=== PATIENT | male | born 1945 | race Caucasian/White ===

== ENCOUNTER 2019-05-02 05:27 | Inpatient (IN) | payer OTHER ==
[2019-04-27 15:43] LABS: BASOPHILS # (AUTO) 0.1 X10'3 (0-0.2); BASOPHILS % (AUTO) 0.7 % (0-1); EOSINOPHILS # (AUTO) 0.3 X10'3 (0-0.9); EOSINOPHILS % (AUTO) 3.1 % (0-6); LYMPHOCYTES # (AUTO) 1.6 X10'3 (1.1-4.8); LYMPHOCYTES % (AUTO) 18.4 % (21-51); MEAN CORPUSCULAR HEMOGLOBIN 29.8 PG (27.0-31.0); MEAN CORPUSCULAR HGB CONC 34.3 g/dL (33.0-36.5); MEAN PLATELET VOLUME 7.9 FL (7.4-10.4); MONOCYTES # (AUTO) 0.8 X10'3 (0-0.9); MONOCYTES % (AUTO) 9.1 % (2-12); NEUTROPHILS # (AUTO) 5.9 X10'3 (1.8-7.7); NEUTROPHILS % (AUTO) 68.7 % (42-75); PRE OP HEMOGLOBIN 15.1 g/dL (14.0-17.9); PRE OP PLATELET COUNT 193 X10'3 (140-440); RED BLOOD COUNT 5.05 X10'6 (4.70-6.10); RED CELL DISTRIBUTION WIDTH 15.1 % (11.5-14.5)
[2019-04-27 15:52] LABS: CLARITY,URINE CLEAR (Clear); COLOR,URINE YELLOW (Yellow); GLUCOSE, URINE NEGATIVE (Neg); KETONES,URINE NEGATIVE (Neg); LEUKOCYTE ESTERASE ,URINE NEGATIVE (Neg); NITRITES, URINE NEGATIVE (Neg); OCCULT BLOOD,URINE NEGATIVE (Neg); PROTEIN,URINE NEGATIVE (Neg); UA COLLECTION TYPE VOIDED; UROBILINOGEN,URINE 0.2 E.U/dL (0.2-1.0)
[2019-04-27 15:53] LABS: PRE OP PROTIME 9.9 SECONDS (9.0-12.0)
[2019-04-27 16:00] LABS: ALBUMIN 3.7 G/DL (3.4-5.0); ALBUMIN/GLOBULIN RATIO 1.1 (1.1-1.5); ALKALINE PHOSPHATASE 56 IU/L (46-116); BLOOD UREA NITROGEN 24 MG/DL (7-18); BUN/CREATININE RATIO 16.2 (5.4-32.0); CALCIUM 9.3 MG/DL (8.5-10.1); CHLORIDE 103 MMOL/L (99-107); CREATININE 1.48 MG/DL (0.60-1.10); PRE OP ALT 24 U/L (30-65); PRE OP ANION GAP 6 (8-16); PRE OP AST 21 U/L (10-37); PRE OP BILIRUB, TOTAL 0.4 MG/DL (0.0-1.0); PRE OP GLUCOSE 89 MG/DL (70-104); PRE OP POTASSIUM 4.5 MMOL/L (3.4-5.1); PRE OP SODIUM 138 MMOL/L (135-145); TOTAL CARBON DIOXIDE 28.9 MMOL/L (24-32); TOTAL PROTEIN 7.1 G/DL (6.4-8.2); eGFR 47 ML/MIN
[~2019-05-02] VITALS: Ht 172.7 cm; Wt 59.0 kg
[2019-05-02] VITALS (19 sets, daily range): BP systolic 107–146; BP diastolic 53–91
[~2019-05-02 05:27] MED LIST: BUPR150T8 PO; CILO100T PO; ROSU40TA PO; TERA5CAP4 PO
[2019-05-02] MEDS ORDERED: albuterol 2.5 MG/3 ML nebule NEB ONE (05:30)
[2019-05-02] MEDS ORDERED: famotidine 20mg tablet PO ONE (05:30)
[2019-05-02] MEDS ORDERED: cefazolin/dext.iso 2gm/100ml 100 ML IV ONE (05:30)
[2019-05-02] MEDS ORDERED: LIDOcaine 1% (10mg/ml) 2ml vial ONE (06:06)
[2019-05-02] MEDS: ringers solution, lacted 1,000 ML IV SCH ×2 (06:08→17:28)
[2019-05-02] MEDS ORDERED: heparin 10,000 units/1 ML INJ ONE (06:56)
[2019-05-02] MEDS ORDERED: ceFAZolin 1000mg inj ONE ×2 (06:56→10:41)
[2019-05-02] MEDS ORDERED: morphine /PF 1mg/ml 10ml inj. ONE (07:24)
[2019-05-02] MEDS ORDERED: fentaNYL/PF 50MCG/1 ML 2ML syringe ONE (07:24)
[2019-05-02] MEDS ORDERED: MIDAZolam 1mg/ml 10ml vial ONE (07:24)
[2019-05-02] MEDS ORDERED: ringers solution, lacted 1,000 ML IV SCH (07:27)
[2019-05-02] MEDS ORDERED: morphine 4 MG/ML inj SYRINge IV PRN ×2 (07:30)
[2019-05-02] MEDS ORDERED: meperidine/PF 25mg/ml syringe IV PRN ×3 (07:30)
[2019-05-02] MEDS ORDERED: proCHLORperazine 10 MG/2 ml inj IV PRN (07:30)
[2019-05-02] MEDS ORDERED: ondansetron/PF 4mg/2ml inj IV PRN ×3 (07:30→19:30)
[2019-05-02] MEDS ORDERED: phenylephrine 10mg/ml inj. ONE (07:59)
[2019-05-02] MEDS ORDERED: naloxone 2mg/2ml inj 1.2 MG in normal saline 500ml IV soln 500 ML IV PRN (09:40)
[2019-05-02] MEDS ORDERED: diphenhydrAMINE 50 mg/ml inj IV PRN (09:40)
[2019-05-02] MEDS ORDERED: diphenhydrAMINE 50 mg/ml inj ONE (10:04)
--- NOTE | 2019-05-02 11:03 | NUR ---
Received from OR via SURGICAL BED , accompanied by Anesthesiologist YASSINE and report given by Anesthesiolgist. PATIENT WITH ART LINE TO RIGHT UE. 18G PIV IN LEFT UE RUNNING LR AT 100. DENIES PAIN. SENSATION LEVEL CURRENTLY AT L1. LEFT INNER THIGH AND CALF AREA HAVE TWO CLEAN ISLAND DRESSINGS WITH + DP. HUDSON CATHETER IN PLACE. VSGabe. KATY MCKEON UPON ARRIVAL. PROVENA TO LEFT INGUINAL AREA. Addendum: 05/02/19 at 1115 by Mike Dasilva RN, RN Amended: Links added.
[2019-05-02] MEDS ORDERED: Potassium Cl inj 20 MEQ in ringers solution, lacted 1,000 ML IV SCH (11:43)
[2019-05-02] MEDS ORDERED: CADD PCA waste documentation MC PRN ×2 (11:45→12:10)
[2019-05-02] MEDS ORDERED: naloxone 0.4 mg/ml inj IV PRN ×2 (11:45→12:10)
[2019-05-02] MEDS: HYDROmorphone/NS 1 mg/ml CADD 50 ML IV SCH ×7 (12:19→23:00)
--- NOTE | 2019-05-02 12:33 | NUR ---
ALL CRITERIA FOR TRANSFER TO THE FLOOR HAS BEEN ACHIEVED. VSS. BED LOW, CALL LIGHT AND VS. SET IN PLACE. RN PRESENT TO ACCEPT CARE. PATIENT RESTING COMFORTABLY IN BED. BELONGINGS SENT WITH PATIENT. DRESSINGS CDI. ALL QUESTIONS ANSWERED AND WILLIAMS TO ACCEPT PATIENT. ORDERLIES TRANSPORTED PATIENT TO THE FLOOR. Addendum: 05/02/19 at 1239 by Mike Dasilva RN, RN Amended: Links added.
--- NOTE | 2019-05-02 12:45 | NUR ---
Patient in room BOYD 355. I have received report from Mike BANDA and had the opportunity to ask questions and assume patient care.
--- NOTE | 2019-05-02 14:00 | NUR ---
Spoke with Dr. German, and obtained verbal order to change dressing, upon dressing change patient had a large fountain of blood from the surgical site and pressure was held for 10 minutes. Patient bleeding stopped at this time. Surgeon was notified of bleeding and blood thinners were ordered to be held at this time.
[2019-05-02] MEDS: albuterol 2.5 MG/3 ML nebule NEB SCH ×2 (15:00→19:44)
--- NOTE | 2019-05-02 18:09 | NUR ---
Problems reprioritized. Patient report given, questions answered & plan of care reviewed with Mariluz Otto RN.
--- NOTE | 2019-05-02 19:01 | NUR ---
Patient in room BOYD 355. I have received report from SOLO Franks and had the opportunity to ask questions and assume patient care. Addendum: 05/02/19 at 1901 by Bertha Smith RN Amended: Links added.
[2019-05-02] MEDS ORDERED: ringers solution, lactated 500ml IV solution IV SCH (19:45)
[2019-05-03] VITALS: BP 136/63
[2019-05-03] MEDS: HYDROmorphone/NS 1 mg/ml CADD 50 ML IV SCH ×10 (01:00→19:00)
[2019-05-03] MEDS: ringers solution, lacted 1,000 ML IV SCH ×3 (01:16→17:05)
[2019-05-03 05:11] VITALS: BP 148/66
--- NOTE | 2019-05-03 05:40 | NUR ---
patient had n/v at the beginning of the shift, called Dr. German and ordered zofran, also patient had low bp and he ordered LR @125, noted and carried out. in no acute distress, dressing was changed tolerated well.
--- NOTE | 2019-05-03 06:39 | NUR ---
Problems reprioritized. Patient report given, questions answered & plan of care reviewed with SOLO Cobos.
[2019-05-03] MEDS: albuterol 2.5 MG/3 ML nebule NEB SCH ×4 (06:52→19:19)
[2019-05-03] MEDS ORDERED: enoxaparin 40mg/0.4ml syringe SQ SCH (08:00)
[2019-05-03] MEDS ORDERED: cilostazol 50mg tablet PO SCH (09:00)
[2019-05-03] MEDS: buPROPion SR 150mg tablet PO SCH ×2 (09:45→21:26)
[2019-05-03] MEDS: atorvastatin 20mg tablet PO SCH (09:45)
--- NOTE | 2019-05-03 11:25 | NUR ---
Pt bladder scanned 713 ml in bladder, straight cathed pt-- got 680ml urine out.
--- NOTE | 2019-05-03 14:25 | NUR ---
Pt still retaining urine, straight cath - got 900 ml of urine.
[2019-05-03 18:00] VITALS: BP 117/54
--- NOTE | 2019-05-03 18:52 | NUR ---
Problems reprioritized. Patient report given, questions answered & plan of care reviewed with Mariluz BANDA.
--- NOTE | 2019-05-03 18:53 | NUR ---
Patient in room BOYD 355. I have received report from SOLO Cobos and had the opportunity to ask questions and assume patient care. Addendum: 05/03/19 at 1853 by Bertha Smith RN Amended: Links added.
[2019-05-03] MEDS ORDERED: ringers solution, lacted 1,000 ML IV SCH (19:05)
[2019-05-03] MEDS: terazosin 5mg capsule PO SCH (21:26)
[2019-05-03] MEDS: HYDROcodone/acetaminophen 5mg/325mg tablet PO PRN (23:05)
[2019-05-04] VITALS: BP 84/54
[2019-05-04 02:44] VITALS: BP_SYST 100; BP_SYST 144; BP_DIAS 56; BP_DIAS 58
--- NOTE | 2019-05-04 06:44 | NUR ---
Problems reprioritized. Patient report given, questions answered & plan of care reviewed with SOLO Trotter.
--- NOTE | 2019-05-04 06:48 | NUR ---
Patient in room BOYD 355. I have received report from Mariluz Otto RN and had the opportunity to ask questions and assume patient care.
[2019-05-04] MEDS: albuterol 2.5 MG/3 ML nebule NEB SCH ×4 (06:52→19:00)
[2019-05-04] MEDS: clopidogrel 75mg tablet PO SCH (07:58)
[2019-05-04] MEDS: buPROPion SR 150mg tablet PO SCH ×2 (07:58→21:15)
[2019-05-04] MEDS: atorvastatin 20mg tablet PO SCH (07:58)
[2019-05-04] MEDS: HYDROcodone/acetaminophen 5mg/325mg tablet PO PRN ×3 (07:59→17:10)
[2019-05-04 08:07] VITALS: BP 145/71
[2019-05-04 11:07] VITALS: BP 113/64
--- NOTE | 2019-05-04 18:19 | NUR ---
Problems reprioritized. Patient report given, questions answered & plan of care reviewed with Mariluz Otto RN.
--- NOTE | 2019-05-04 18:45 | NUR ---
Patient in room BOYD 355. I have received report from SOLO Trotter and had the opportunity to ask questions and assume patient care. Addendum: 05/04/19 at 1845 by Bertha Smith RN Amended: Links added.
[2019-05-04 20:00] VITALS: BP 100/56
[2019-05-04] MEDS: terazosin 5mg capsule PO SCH (21:16)
[2019-05-05] VITALS: BP 97/64
--- NOTE | 2019-05-05 06:26 | NUR ---
Problems reprioritized. Patient report given, questions answered & plan of care reviewed with SOLO Trotter.
[2019-05-05] MEDS: HYDROcodone/acetaminophen 5mg/325mg tablet PO PRN ×2 (07:40→11:47)
[2019-05-05] MEDS: clopidogrel 75mg tablet PO SCH (07:40)
[2019-05-05] MEDS: atorvastatin 20mg tablet PO SCH (07:41)
[2019-05-05] MEDS: buPROPion SR 150mg tablet PO SCH (07:41)
[2019-05-05] MEDS: albuterol 2.5 MG/3 ML nebule NEB SCH ×2 (08:23→11:00)
[2019-05-05] MEDS ORDERED: CLOP75TA35 PO (12:36)
--- NOTE | 2019-05-05 14:26 | NUR ---
Patient discharged at this time. at bedside. all education printed and given in discharge paperwork. Follow up appointment made by patient, to take place with Dr. lancaster. IV removed. Sánchez still in place per MD order and education on sánchez care provided to both patient and . Supplies provided. Education on handwashing and infection prevention given.
== END 2019-05-05 14:20 | disposition home or self-care (01) | DRG 254 ==
LOC: PAS IN 05:27 → EDSTATUS 08:30 → SUR 3N 11:46 → UNDODISIN 05-05 11:53
PROVIDERS: ADMIT Surgery; ATTEND Surgery
PROC: 04CU0ZZ Extirpation of Matter from Left Peroneal Artery, Open Approach (ICD-10-PCS; 2019-05-02)
PROC: 041L0ZN Bypass Left Femoral Artery to Posterior Tibial Artery, Open Approach (ICD-10-PCS; 2019-05-02)
PROC: 04CL0ZZ Extirpation of Matter from Left Femoral Artery, Open Approach (ICD-10-PCS; principal; 2019-05-02 07:32)
DX: I73.9 Peripheral vascular disease, unspecified (principal); F17.210 Nicotine dependence, cigarettes, uncomplicated; I10 Essential (primary) hypertension; Z82.49 Family history of ischemic heart disease and other diseases of the circulatory system
CPT/HCPCS: 36415; 71046; 80053; 81003; 82948; 85025; 85610; 85730; 86885; 86900; 86901; 86920; 87081; 93005; 94640; 94760; 97110; 97116; 97162; 97530; A4618; A7000; C1758; G0378; J0690; J1170; J1200; J1644; J2001; J2250; J2270; J2370; J2405; J3010; J7040; J7120

== ENCOUNTER 2019-05-08 00:39 | Emergency (ER) | payer OTHER ==
[~2019-05-08] VITALS: Ht 172.7 cm; Wt 59.0 kg
[~2019-05-08 00:39] MED LIST changes: +CLOP75TA35 PO
[2019-05-08] MEDS ORDERED: morphine 4 MG/ML inj SYRINge IV ONE (01:15)
[2019-05-08] MEDS ORDERED: ondansetron/PF 4mg/2ml inj IV ONE (01:15)
[2019-05-08] MEDS ORDERED: LORazepam 2 mg/ml vial IV ONE (01:25)
[2019-05-08] MEDS ORDERED: LIDOcaine 2% 10ml TOPICAL JELLY (Urojet) MM ONE ×2 (01:25→05:35)
--- NOTE | 2019-05-08 01:42 | NUR ---
Pt premedicated prior to [facility] performing needle decompression of indwelling FC balloon pt had attempted to remove without balloon deflation resulting in catheter coiling within urethera. New FC was immediately replaced without resistance by this RN. PTW. He is currently resting and output being monitored. Currently output is scant and includes bright red blood. Leg bag will be attached prior to discharge.
[2019-05-08] MEDS ORDERED: normal saline 1000ml 1,000 ML IV ONE (03:05)
[2019-05-08] MEDS ORDERED: haloperidol lactate 5mg/ml inj IM ONE (05:05)
--- NOTE | 2019-05-08 05:26 | NUR ---
Pt was standing at bedside. He is very confused. Changed his bed, put pt back in bed and soft wrist restraints to wrists applied for safety as pt pulling at sánchez catheter. Sánchez catheter irrigated with 100 mls of sterile water for zero return. bladder scanned. The catheter is not draining. MD made aware, he has a call into urologist. MD aware of patient confusion, he is aware of the restraints.
--- NOTE | 2019-05-08 07:17 | NUR ---
at about 0640 dr syed arrived and found pt on his knees at the foot of the bed we assisted pt back in to bed and dr syed proceded with attimpting to place a f/c and was not able to. so he used the scope and placed a f/c with assistace of the scope. once completed he asked for a leg bag to be placed so there is less of a chance of it being pulled again. a leg bag was placed. pt keeps tring to climb out of bed and keeps needing reminded to say in bed. he is easy to redirect and follows comands
[2019-05-08 07:23] VITALS: BP 125/69
--- NOTE | 2019-05-08 07:24 | NUR ---
22 fr f/c was placed by dr syed
--- NOTE | 2019-05-08 07:48 | NUR ---
pt keeps tying to climb out of bed and is weak and shaky when he gets up to his feet. and he is starting to become harder to redirect and starting to become more agressive
== END 2019-05-08 08:52 | disposition home or self-care (01) ==
LOC: ER 00:41
DX: T83.098A Other mechanical complication of other urinary catheter, initial encounter (principal); Z98.890 Other specified postprocedural states; Z79.899 Other long term (current) drug therapy; W18.39XA Other fall on same level, initial encounter; Y93.89 Activity, other specified; Y92.89 Other specified places as the place of occurrence of the external cause; Y99.8 Other external cause status; Y84.6 Urinary catheterization as the cause of abnormal reaction of the patient, or of later complication, without mention of misadventure at the time of the procedure
CPT/HCPCS: 51702; 70450; 96372; 96374; 96375; 99285; J1630; J2060; J2270; J2405; J7030; 99284

== ENCOUNTER 2019-05-19 01:46 | Inpatient (IN) | payer MEDICARE ==
[~2019-05-19] VITALS: Ht 172.7 cm; Wt 53.6 kg
[2019-05-19] VITALS (26 sets, daily range): BP systolic 93–194; BP diastolic 45–101
[2019-05-19] MEDS ORDERED: normal saline 1000ML IV soln IV ONE (02:40)
[2019-05-19] MEDS ORDERED: CefTRIAXone 2gm/D5W 50ml 50 ML IV ONE (02:40)
[2019-05-19] MEDS ORDERED: ondansetron/PF 4mg/2ml inj IV ONE (02:55)
[2019-05-19] MEDS ORDERED: HYDROcodone/acetaminophen 5mg/325mg tablet PO ONE (02:55)
[2019-05-19 03:09] LABS: BASOPHILS # (AUTO) 0.1 X10'3 (0-0.2); BASOPHILS % (AUTO) 0.4 % (0-1); EOSINOPHILS # (AUTO) 0.1 X10'3 (0-0.9); EOSINOPHILS % (AUTO) 0.5 % (0-6); LYMPHOCYTES # (AUTO) 2.7 X10'3 (1.1-4.8); MEAN CORPUSCULAR HEMOGLOBIN 28.9 PG (27.0-31.0); MEAN CORPUSCULAR HGB CONC 32.1 g/dL (33.0-36.5); MEAN PLATELET VOLUME 8.1 FL (7.4-10.4); MONOCYTES # (AUTO) 0.9 X10'3 (0-0.9); MONOCYTES % (AUTO) 4.3 % (2-12); NEUTROPHILS # (AUTO) 18.2 X10'3 (1.8-7.7); NEUTROPHILS % (AUTO) 82.8 % (42-75); PLATELET COUNT 597 X10'3 (140-440); RED BLOOD COUNT 2.17 X10'6 (4.70-6.10); RED CELL DISTRIBUTION WIDTH 14.3 % (11.5-14.5)
[2019-05-19 03:17] LABS: PARTIAL THROMBOPLASTIN TIME 23 SECONDS (22-32)
[2019-05-19 03:23] LABS: CLARITY,URINE CLOUDY (Clear); COLOR,URINE YELLOW (Yellow); GLUCOSE, URINE 100 mg/dl (Neg); KETONES,URINE NEGATIVE (Neg); LEUKOCYTE ESTERASE ,URINE SMALL (Neg); NITRITES, URINE NEGATIVE (Neg); OCCULT BLOOD,URINE LARGE (Neg); PH,URINE 5.5 (4.8-8.0); PROTEIN,URINE 100 mg/dl (Neg); UROBILINOGEN,URINE 0.2 E.U/dL (0.2-1.0)
[2019-05-19 03:26] LABS: HEMATOCRIT 19.5 % (42.0-52.0); HEMOGLOBIN 6.3 g/dl (14.0-17.9)
[2019-05-19 03:30] LABS: UA COLLECTION TYPE FOLEY CATH
[2019-05-19 03:31] LABS: BACTERIA,URINE FEW /HPF (Neg); SQUAMOUS EPITHELIAL CELL,UR FEW /LPF (FEW); WBC CLUMPS,URINE FEW /HPF (NEGATIVE); WBC,URINE 50-100 /HPF (0-4)
[2019-05-19] MEDS ORDERED: pantoprazole 40 MG vial IV ONE (03:35)
[2019-05-19] MEDS ORDERED: famotidine/PF 10 mg/ml inj IV ONE (03:35)
[2019-05-19 03:55] LABS: ANISOCYTOSIS 1+; PLATELET ESTIMATE INCREASED; TOTAL CELLS COUNTED 100
[2019-05-19 03:56] LABS: OCCULT BLOOD STOOL POSITIVE (Neg)
[2019-05-19] MEDS: pantoprazole 40MG/NS 100ML BAG 100 ML IV SCH ×5 (04:00→20:55)
[2019-05-19] MEDS ORDERED: magnesium 4gm in 100ml NS 100 ML IV PRN (04:10)
[2019-05-19] MEDS ORDERED: magnesium 2GM in 50ml NS 50 ML IV PRN (04:10)
[2019-05-19] MEDS ORDERED: ondansetron/PF 4mg/2ml inj IV PRN (04:10)
[2019-05-19] MEDS ORDERED: magnesium hydroxide 30ml (MOM) UD suspension PO PRN (04:10)
[2019-05-19] MEDS ORDERED: acetaminophen 325mg tablet PO PRN ×2 (04:10)
[2019-05-19] MEDS ORDERED: potassium Cl 20 mEq SR tablet PO PRN ×2 (04:10)
[2019-05-19] MEDS ORDERED: mag hydrox/Alum hydrox/simeth 30ml oral suspension PO PRN (04:10)
[2019-05-19] MEDS ORDERED: magnesium Cl slow-release 64mg tablet PO PRN (04:10)
[2019-05-19] MEDS ORDERED: potassium CL 10mEq/100ml bag 100 ML IV PRN ×2 (04:10)
[2019-05-19 04:14] LABS: ALANINE AMINOTRANSFERASE 29 U/L (12-78); ALBUMIN 2.1 G/DL (3.4-5.0); ALBUMIN/GLOBULIN RATIO 0.6 (1.1-1.5); ALKALINE PHOSPHATASE 60 IU/L (46-116); ANION GAP 18 (8-16); ASPARTATE AMINO TRANSFERASE 22 U/L (10-37); BILIRUBIN,TOTAL 0.3 MG/DL (0.1-1.0); BLOOD UREA NITROGEN 33 MG/DL (7-18); BUN/CREATININE RATIO 16.7 (5.4-32.0); CALCIUM 8.9 MG/DL (8.5-10.1); CHLORIDE 106 MMOL/L (99-107); CREATININE 1.98 MG/DL (0.60-1.10); GLUCOSE 325 MG/DL (70-104); POTASSIUM 4.8 MMOL/L (3.5-5.1); SODIUM 141 MMOL/L (135-145); TOTAL CARBON DIOXIDE 17.5 MMOL/L (24-32); TOTAL PROTEIN 5.4 G/DL (6.4-8.2); eGFR 33 ML/MIN
[2019-05-19] MEDS ORDERED: CLOP75TA80 PO (04:15)
--- NOTE | 2019-05-19 05:05 | NUR ---
received report from Tavo BANDA ER, had opportunity to ask questions, per hand off report: pt on Protonix drip running at 20ml/hr, suspected upper GI bleed, sepsis, UTI, anemia, pt H/H 6.3/19.5, unit of blood needed, pt has large incision on left leg from hip to ankle with open area on upper thigh not bleeding but small amount of drainage. awaiting pt arrival to unit.
--- NOTE | 2019-05-19 06:21 | NUR ---
Patient in room PCU 3017. I have received report from SOLO Metzger and had the opportunity to ask questions and assume patient care.
--- NOTE | 2019-05-19 06:30 | NUR ---
Problems reprioritized. Patient report given, questions answered & plan of care reviewed with Kwaku BANDA.
--- NOTE | 2019-05-19 06:58 | NUR ---
PAGER ID: [phone] MESSAGE: [phone] Javid Arora: Patient does not want morphione (he says he hallucinates on it), he is hoping he can get a different pain med. SOLO Ames Ext [id number]
[2019-05-19] MEDS ORDERED: HYDROcodone/acetaminophen 5mg/325mg tablet PO PRN (07:05)
[2019-05-19 07:35] LABS: ALBUMIN 2.3 G/DL (3.4-5.0); ANION GAP 11 (8-16); BLOOD UREA NITROGEN 32 MG/DL (7-18); BUN/CREATININE RATIO 20.8 (5.4-32.0); CALCIUM 8.7 MG/DL (8.5-10.1); CHLORIDE 109 MMOL/L (99-107); CREATININE 1.54 MG/DL (0.60-1.10); GLUCOSE 221 MG/DL (70-104); SODIUM 141 MMOL/L (135-145); TOTAL CARBON DIOXIDE 20.6 MMOL/L (24-32); eGFR 45 ML/MIN
[2019-05-19 07:47] LABS: BASOPHILS # (AUTO) 0.1 X10'3 (0-0.2); BASOPHILS % (AUTO) 0.3 % (0-1); EOSINOPHILS % (AUTO) 0 % (0-6); HEMATOCRIT 22.6 % (42.0-52.0); HEMOGLOBIN 7.5 g/dl (14.0-17.9); LYMPHOCYTES # (AUTO) 0.8 X10'3 (1.1-4.8); LYMPHOCYTES % (AUTO) 2.5 % (21-51); MEAN CORPUSCULAR HEMOGLOBIN 28.8 PG (27.0-31.0); MEAN CORPUSCULAR VOLUME 87.3 FL (78-98); MEAN PLATELET VOLUME 7.7 FL (7.4-10.4); MONOCYTES # (AUTO) 1.2 X10'3 (0-0.9); MONOCYTES % (AUTO) 3.9 % (2-12); NEUTROPHILS # (AUTO) 28.5 X10'3 (1.8-7.7); NEUTROPHILS % (AUTO) 93.3 % (42-75); PLATELET COUNT 525 X10'3 (140-440); RED BLOOD COUNT 2.59 X10'6 (4.70-6.10); RED CELL DISTRIBUTION WIDTH 14.1 % (11.5-14.5)
[2019-05-19 07:49] LABS: WHITE BLOOD COUNT 30.5 X10'3 (4.5-11.0)
--- NOTE | 2019-05-19 07:50 | NUR ---
PAGER ID: [phone] MESSAGE: [phone] Javid Arora: WBC 30.5 SOLO Ames Ext [id number]
[2019-05-19 07:51] LABS: TROPONIN I 0.88 NG/ML (0.0-0.05)
[2019-05-19] MEDS: K and/or MAG REPLACEMENT MC SCH ×2 (08:00→20:00)
--- NOTE | 2019-05-19 08:04 | NUR ---
PAGER ID: [phone] MESSAGE: [id number] Javid Arora: Trop 0.88. Also can he get something for BP 194/76 SOLO Ames Ext [id number]
--- NOTE | 2019-05-19 08:05 | NUR ---
PAGER ID: [phone] MESSAGE: [id number] Javid Arora: Trop 0.88. Also can he get something for BP 194/76 SOLO Ames Ext [id number]
[2019-05-19] MEDS: atorvastatin 10mg tablet PO SCH (08:07)
[2019-05-19 08:08] LABS: PLATELET ESTIMATE INCREASED; POLYCHROMASIA 1+; TOTAL CELLS COUNTED 100; TOXIC GRANULATION 3+
--- NOTE | 2019-05-19 08:11 | NUR ---
PAGER ID: [phone] MESSAGE: [id number] Javid Arora: Trop 1.47 (per Lab timing of draws got messed up). SOLO Ames Ext [id number]
[2019-05-19] MEDS ORDERED: hydrALAZINE 20mg/ml inj. IV PRN (08:20)
[2019-05-19] MEDS ORDERED: atorvastatin 20mg tablet PO SCH (08:20)
[2019-05-19] MEDS: metoprolol succinate 25mg (24-HOUR) SR. Tablet PO SCH (08:38)
[2019-05-19] MEDS ORDERED: LIDOcaine Viscous 15ml cup ONE (08:51)
[2019-05-19] MEDS ORDERED: MIDAZolam 5mg/5ml vial ONE (08:51)
[2019-05-19] MEDS ORDERED: fentaNYL/PF 50MCG/1 ML 2ML syringe ONE (08:51)
[2019-05-19] MEDS: normal saline 1000ml 1,000 ML IV SCH ×2 (11:30→14:39)
[2019-05-19] MEDS: vancomycin/NS 1 GM ADD-VANTAGE 250 ML IV SCH (11:30)
[2019-05-19] MEDS ORDERED: isosorbide mononitrate 30mg tab.SR.24H PO ONE (11:55)
--- NOTE | 2019-05-19 12:00 | NUR ---
Initial: Pt admit with ALOC and sepsis secondary to UTI. Pt just admit this morning, pending diet order. Pt with low BMI of 18 however current documented wt is unreliable as it is pt stated. Pt recently admitted and documented at 59 kg 05/01 taken with standing scale resulting in an appropriate BMI of 19.8. No documented LBM. Will continue to follow closely and make recommendations as appropriate. Recommendations: 1) Advance diet to regular as medically indicated 2) Monitor need for ONS with diet advancement 3) Routine bowel care 4) Wt per rx Addendum: 05/19/19 at [address] Amended: Links added.
[2019-05-19 12:54] LABS: HEMATOCRIT 29.4 % (42.0-52.0); HEMOGLOBIN 9.8 g/dl (14.0-17.9); MEAN CORPUSCULAR HEMOGLOBIN 29.3 PG (27.0-31.0); MEAN CORPUSCULAR HGB CONC 33.2 g/dL (33.0-36.5); MEAN CORPUSCULAR VOLUME 88.4 FL (78-98); MEAN PLATELET VOLUME 7.8 FL (7.4-10.4); PLATELET COUNT 444 X10'3 (140-440); RED BLOOD COUNT 3.33 X10'6 (4.70-6.10); RED CELL DISTRIBUTION WIDTH 14.6 % (11.5-14.5)
[2019-05-19 12:58] LABS: WHITE BLOOD COUNT 40.2 X10'3 (4.5-11.0)
--- NOTE | 2019-05-19 13:04 | NUR ---
PAGER ID: [phone] MESSAGE: [phone] DAYDAY WBC WENT FROM 30.5 TO 40.2 IN 5 HOURS. KRISTIN BANDA Addendum: 05/19/19 at 1347 by Leandra Eason RN Amended: Links added.
--- NOTE | 2019-05-19 13:13 | NUR ---
PAGER ID: [phone] MESSAGE: [id number] Javid Maite: Trop now at 6.44 SOLO Ames Ext [id number]
--- NOTE | 2019-05-19 13:17 | NUR ---
Left message for Shay QUINTANILLA answering service regarding climb in trop lvl per Dr Newberry.
--- NOTE | 2019-05-19 13:20 | NUR ---
Per answer from Dr QUINTANILLA repeat trops in the morning.
[2019-05-19] MEDS: piperacillin/tazo 3.375gm/50ml 50 ML IV SCH ×2 (14:01→23:44)
[2019-05-19 17:28] LABS: HEMATOCRIT 31.1 % (42.0-52.0); HEMOGLOBIN 10.4 g/dl (14.0-17.9); MEAN CORPUSCULAR HEMOGLOBIN 29.5 PG (27.0-31.0); MEAN CORPUSCULAR HGB CONC 33.4 g/dL (33.0-36.5); MEAN CORPUSCULAR VOLUME 88.4 FL (78-98); PLATELET COUNT 429 X10'3 (140-440); RED BLOOD COUNT 3.51 X10'6 (4.70-6.10); RED CELL DISTRIBUTION WIDTH 14.5 % (11.5-14.5)
--- NOTE | 2019-05-19 17:45 | NUR ---
PAGER ID: [phone] MESSAGE: [id number] Javid Arora: Trop 10.63 (Per Dr QUINTANILLA earlier he said to repeat trop series again tomorrow). SOLO Ames Ext [id number]
[2019-05-19] MEDS ORDERED: nitroGLYCERIN-Tridil 50MG/D5W 250 ML IV SCH (17:55)
--- NOTE | 2019-05-19 18:00 | NUR ---
Patient in room PCU 3017. I have received report from Kwaku BANDA and had the opportunity to ask questions and assume patient care.
--- NOTE | 2019-05-19 18:44 | NUR ---
Problems reprioritized. Patient report given, questions answered & plan of care reviewed with SOLO Montejo.
--- NOTE | 2019-05-19 18:58 | NUR ---
Confused and agitated PAGER ID: [phone] MESSAGE: [phone] Javid Arora: Patient is becoming increasingly confused, agitated, and wanting to leave. Would you like to order anything? Nikia BANDA [phone]
[2019-05-19] MEDS ORDERED: OLANZapine 2.5MG tablet PO PRN (19:05)
[2019-05-19] MEDS: terazosin 5mg capsule PO SCH (21:00)
--- NOTE | 2019-05-19 21:41 | NUR ---
Nitro drip not started MD Chance called about low blood pressure and order for Nitro drip. Okayed to not start Nitro drip. Will continue to monitor. PAGER ID: [phone] MESSAGE: Javid Arora: SBP 97/45, Nitro drip not given at this time. Would you like to order an additional troponin? Nikia BANDA [phone]
--- NOTE | 2019-05-19 22:22 | NUR ---
Nitro drip MD Bob called back, no extra trops to be ordered. Nitro drip to be started when SBP is stable over 110s.
[2019-05-20] VITALS (17 sets, daily range): BP systolic 97–132; BP diastolic 23–66
[2019-05-20] MEDS: normal saline 1000ml 1,000 ML IV SCH ×3 (00:10→20:10)
[2019-05-20] MEDS: pantoprazole 40MG/NS 100ML BAG 100 ML IV SCH ×5 (01:54→21:00)
--- NOTE | 2019-05-20 02:40 | NUR ---
CONFUSION PAGER ID: [phone] MESSAGE: [id number] Cruz Arora: Patient is confused and is getting worse by pulling and getting out of bed. Zyprexa was able to keep him manageable for some time. Would you like to order something? Nikia BANDA [phone]
--- NOTE | 2019-05-20 04:15 | NUR ---
END NOC NOTE Patient has been continually been pleasantly confused, bed alarm used all night; Zyprexa was given once at the beginning of shift and was able to become more compliant. MD Bob suggested a sitter before any more mediations. Patient stated no pain all night. Wound care was done on left thigh surgical wound. Diarrhea is now clear with a few clots. Nitro drip was not started tonight, MD aware, blood pressures have been low. Will continue to monitor.
--- NOTE | 2019-05-20 06:29 | NUR ---
Problems reprioritized. Patient report given, questions answered & plan of care reviewed with Tori BANDA.
--- NOTE | 2019-05-20 06:43 | NUR ---
Patient in room PCU 3017. I have received report from Lisa BANDA and had the opportunity to ask questions and assume patient care. All patients' needs met at this time.
[2019-05-20 07:51] LABS: BASOPHILS % (AUTO) 0.1 % (0-1); EOSINOPHILS % (AUTO) 0 % (0-6); HEMATOCRIT 25.4 % (42.0-52.0); HEMOGLOBIN 8.7 g/dl (14.0-17.9); LYMPHOCYTES # (AUTO) 0.9 X10'3 (1.1-4.8); MEAN CORPUSCULAR HEMOGLOBIN 29.7 PG (27.0-31.0); MEAN CORPUSCULAR HGB CONC 34.3 g/dL (33.0-36.5); MEAN CORPUSCULAR VOLUME 86.6 FL (78-98); MEAN PLATELET VOLUME 7.8 FL (7.4-10.4); MONOCYTES # (AUTO) 1.6 X10'3 (0-0.9); MONOCYTES % (AUTO) 5.3 % (2-12); NEUTROPHILS # (AUTO) 27.1 X10'3 (1.8-7.7); NEUTROPHILS % (AUTO) 91.6 % (42-75); PLATELET COUNT 366 X10'3 (140-440); RED BLOOD COUNT 2.94 X10'6 (4.70-6.10); RED CELL DISTRIBUTION WIDTH 14.9 % (11.5-14.5)
[2019-05-20] MEDS: K and/or MAG REPLACEMENT MC SCH ×2 (08:00→20:00)
[2019-05-20] MEDS ORDERED: CefTRIAXone 2gm/D5W 50ml 50 ML IV SCH (08:00)
[2019-05-20 08:02] LABS: WHITE BLOOD COUNT 29.6 X10'3 (4.5-11.0)
--- NOTE | 2019-05-20 08:04 | NUR ---
CRITICAL LAB VALUE TAKEN [facility] LAB, REPORTED TO PRIMARY RN.
--- NOTE | 2019-05-20 08:10 | NUR ---
Paged Dr Newberry about critical WBC PAGER ID: [phone] MESSAGE: Aaliyah Maite Javid Rm [id number] FYI Critical WBC 29.6, trending down from 36.0. Thanks Tori [phone]
[2019-05-20 08:13] LABS: ALBUMIN 2.1 G/DL (3.4-5.0); ANION GAP 8 (8-16); BLOOD UREA NITROGEN 37 MG/DL (7-18); BUN/CREATININE RATIO 24.5 (5.4-32.0); CALCIUM 7.9 MG/DL (8.5-10.1); CHLORIDE 112 MMOL/L (99-107); CREATININE 1.51 MG/DL (0.60-1.10); GLUCOSE 148 MG/DL (70-104); MAGNESIUM 1.9 MG/DL (1.5-2.4); POTASSIUM 4.2 MMOL/L (3.5-5.1); SODIUM 145 MMOL/L (135-145); TOTAL CARBON DIOXIDE 25.5 MMOL/L (24-32); eGFR 46 ML/MIN
[2019-05-20 08:16] LABS: TROPONIN I 7.96 NG/ML (0.0-0.05)
[2019-05-20] MEDS: isosorbide mononitrate 30mg tab.SR.24H PO SCH (08:21)
[2019-05-20] MEDS: atorvastatin 10mg tablet PO SCH (08:21)
[2019-05-20] MEDS: metoprolol succinate 25mg (24-HOUR) SR. Tablet PO SCH (08:21)
[2019-05-20 08:23] LABS: ANISOCYTOSIS FEW; PLATELET ESTIMATE NORMAL; POLYCHROMASIA FEW; TOTAL CELLS COUNTED 100; TOXIC GRANULATION 2+
[2019-05-20] MEDS: piperacillin/tazo 3.375gm/50ml 50 ML IV SCH ×2 (08:25→16:13)
--- NOTE | 2019-05-20 08:56 | NUR ---
Paged dr huitron about critical lab PAGER ID: [phone] MESSAGE: Re: John Arora [phone] FYI Critical am trops 7.96, trending down from 10.63. Thanks Tori [phone]
--- NOTE | 2019-05-20 10:51 | NUR ---
Paged Dr Newberry about critical lab PAGER ID: [phone] MESSAGE: John Antonio [id number]. I Critical Trops 8., previous 7. Thanks Tori [phone]
--- NOTE | 2019-05-20 13:16 | NUR ---
CRITICAL LAB VALUE TAKEN FROM LAB, REPORTED TO PRIMARY RN.
[2019-05-20] MEDS: vancomycin/NS 1 GM ADD-VANTAGE 250 ML IV SCH (13:51)
--- NOTE | 2019-05-20 14:00 | NUR ---
Placed rectal tube per MD orders. Patient tolerated well, draining efficiently. Will continue to monitor regularly.
--- NOTE | 2019-05-20 14:14 | NUR ---
Calorie Count/Malnutrition consults: Pt admit w/ sepsis secondary to UTI currently AOx2 and pleasantly confused per RN note. Pt remains NPO at this time w/ no diet order this admit day 2. PHANI d/w RN who reports likely error and will f/u for MD recs. At this time pt current wt is stated even though ALOC, no edema or weakness noted, and no PO hx. Pt prior admit scaled wt 05/01 59kg standing scale giving pt appropriate BMI 20. Pt does not meet minimum malnutrition criteria at this time. Will continue to monitor. Addendum: 05/20/19 at [address] Amended: Links added.
[2019-05-20 15:48] LABS: C DIFFICILE TOXINS A&B NEGATIVE (Neg)
[2019-05-20 15:49] LABS: C DIFF ANTIGEN NEGATIVE (NEGATIVE); C DIFF SPECIMEN=DIARRHEA? ACCEPTABLE
--- NOTE | 2019-05-20 18:00 | NUR ---
Patient in room PCU 3017. I have received report from Tori BANDA and had the opportunity to ask questions and assume patient care.
--- NOTE | 2019-05-20 18:57 | NUR ---
Problems reprioritized. Patient report given, questions answered & plan of care reviewed with Lisa BANDA. All patient's needs met at this time.
[2019-05-20] MEDS ORDERED: ketamine 50mg/5ml syringe ONE (19:28)
[2019-05-20] MEDS ORDERED: midazolam 2 mg/2 ml injection ONE (19:28)
[2019-05-20] MEDS ORDERED: fentaNYL /PF 50mcg/ml 5ml ampule ONE (19:28)
[2019-05-20] MEDS ORDERED: ceFAZolin 1000mg inj ONE (19:42)
[2019-05-20] MEDS ORDERED: propofol inj 20 ML IV ONE (20:12)
[2019-05-20] MEDS ORDERED: LIDOcaine 1%/PF 5ML 10 MG/ML VIAL ONE (20:12)
[2019-05-20] MEDS ORDERED: meperidine/PF 50mg/ml syringe ONE (20:15)
[2019-05-20] MEDS ORDERED: ringers solution, lacted 1,000 ML IV SCH (20:24)
[2019-05-20] MEDS ORDERED: meperidine/PF 25mg/ml syringe IV PRN ×3 (20:25)
[2019-05-20] MEDS ORDERED: ondansetron/PF 4mg/2ml inj IV PRN (20:25)
[2019-05-20] MEDS ORDERED: proCHLORperazine 10 MG/2 ml inj IV PRN (20:25)
[2019-05-20] MEDS ORDERED: morphine 4 MG/ML inj SYRINge IV PRN ×2 (20:25)
--- NOTE | 2019-05-20 20:25 | NUR ---
Received from OR via BED, accompanied by Anesthesiologist CARMEN and report given by Anesthesiolgist. PT SLEEPY, OXYGENATING WELL ON 10 LPM O2 VIA MASK, NO RESP DISTRESS NOTED. NO C/O NAUSEA OR PAIN AT THIS TIME, PT RESTING QUIETLY. WOUND VAC DSG TO UPPER LEFT THIGH, GOOD SEAL. SX TO 125 CONT. PALPABLE PEDAL PULSES BILAT. VSS.
[2019-05-20] MEDS: terazosin 5mg capsule PO SCH (21:00)
--- NOTE | 2019-05-20 21:25 | NUR ---
Report called to receiving nurse. Transferred via BED Belongings IN PT ROOM. VSS. DENIES PAIN. NO PO FLUIDS GIVEN IN PACU, PT SLEEPY.WAKES UP AND ANSWERS QUESTIONS. TRANSFERRED BACK TO PCU IN STABLE CONDITION. Special Issues communicated to receiving nurse.
[2019-05-21] VITALS (10 sets, daily range): BP systolic 93–140; BP diastolic 49–67
[2019-05-21] MEDS: piperacillin/tazo 3.375gm/50ml 50 ML IV SCH ×2 (00:07→07:57)
[2019-05-21] MEDS: pantoprazole 40MG/NS 100ML BAG 100 ML IV SCH ×5 (00:10→21:51)
[2019-05-21 06:43] LABS: BASOPHILS % (AUTO) 0.2 % (0-1); EOSINOPHILS % (AUTO) 0 % (0-6); HEMOGLOBIN 8.5 g/dl (14.0-17.9); LYMPHOCYTES # (AUTO) 0.9 X10'3 (1.1-4.8); LYMPHOCYTES % (AUTO) 3.6 % (21-51); MEAN CORPUSCULAR HEMOGLOBIN 29.8 PG (27.0-31.0); MEAN CORPUSCULAR HGB CONC 34.1 g/dL (33.0-36.5); MEAN CORPUSCULAR VOLUME 87.3 FL (78-98); MEAN PLATELET VOLUME 8.2 FL (7.4-10.4); MONOCYTES # (AUTO) 1.5 X10'3 (0-0.9); MONOCYTES % (AUTO) 5.9 % (2-12); NEUTROPHILS # (AUTO) 22.5 X10'3 (1.8-7.7); NEUTROPHILS % (AUTO) 90.3 % (42-75); PLATELET COUNT 334 X10'3 (140-440); RED BLOOD COUNT 2.86 X10'6 (4.70-6.10); RED CELL DISTRIBUTION WIDTH 14.9 % (11.5-14.5); WHITE BLOOD COUNT 24.9 X10'3 (4.5-11.0)
[2019-05-21 07:03] LABS: ANION GAP 7 (8-16); BLOOD UREA NITROGEN 33 MG/DL (7-18); BUN/CREATININE RATIO 22.3 (5.4-32.0); CALCIUM 7.6 MG/DL (8.5-10.1); CHLORIDE 114 MMOL/L (99-107); CREATININE 1.48 MG/DL (0.60-1.10); GLUCOSE 110 MG/DL (70-104); MAGNESIUM 2.3 MG/DL (1.5-2.4); POTASSIUM 3.9 MMOL/L (3.5-5.1); SODIUM 148 MMOL/L (135-145); TOTAL CARBON DIOXIDE 26.6 MMOL/L (24-32); eGFR 47 ML/MIN
--- NOTE | 2019-05-21 07:14 | NUR ---
Patient in room PCU 3017. I have received report from Lisa BANDA and had the opportunity to ask questions and assume patient care. All patient's needs met at this time.
--- NOTE | 2019-05-21 07:23 | NUR ---
END NOC NOTE Patient had procedure at start of shift, left leg wound was debrided and wound vac placed. Patient has slept all night, still has diarrhea but with no red clots. Patient's troponin has been trending down, last was 5.16 and MD Bryant was notified with no new orders. Blood pressures have been low all night but stable. Patient has complained of dry mouth and ice was given, will pass on to day shift of potential diet change. Will continue to monitor.
[2019-05-21] MEDS: atorvastatin 10mg tablet PO SCH (07:57)
[2019-05-21] MEDS: isosorbide mononitrate 30mg tab.SR.24H PO SCH (07:57)
[2019-05-21] MEDS: metoprolol succinate 25mg (24-HOUR) SR. Tablet PO SCH (07:57)
[2019-05-21] MEDS: normal saline 1000ml 1,000 ML IV SCH ×2 (07:58→17:04)
[2019-05-21] MEDS: K and/or MAG REPLACEMENT MC SCH ×2 (08:00→20:00)
--- NOTE | 2019-05-21 09:59 | NUR ---
Paged Dr Newberry PAGER ID: [phone] MESSAGE: Aaliyah AroraDesy [id number] FYI Pt is still NPO, can you put a diet order in for him please. Thank you Tori [phone]
--- NOTE | 2019-05-21 18:00 | NUR ---
Patient in room PCU 3017. I have received report from Tori BANDA and had the opportunity to ask questions and assume patient care.
--- NOTE | 2019-05-21 18:55 | NUR ---
Problems reprioritized. Patient report given, questions answered & plan of care reviewed with Lisa BANDA. All patient's needs met at this time.
[2019-05-21] MEDS: amox tr/potassium clavulanate 875/125mg TAB PO SCH (19:17)
[2019-05-21] MEDS: terazosin 5mg capsule PO SCH (20:52)
[2019-05-22] MEDS: pantoprazole 40MG/NS 100ML BAG 100 ML IV SCH ×3 (01:00→09:12)
--- NOTE | 2019-05-22 01:55 | NUR ---
Urine retention PAGER ID: [phone] MESSAGE: Javid Arora: Patient has had difficulty urinating, bladder scanner states 999ml. he has a history of pulling out f/c, requesting straight cath please. nimo BANDA [phone]
[2019-05-22] MEDS: normal saline 1000ml 1,000 ML IV SCH (02:28)
[2019-05-22 03:00] VITALS: BP 143/59
[2019-05-22 05:33] LABS: BASOPHILS % (AUTO) 0 % (0-1); EOSINOPHILS % (AUTO) 0 % (0-6); HEMATOCRIT 25.8 % (42.0-52.0); HEMOGLOBIN 8.7 g/dl (14.0-17.9); LYMPHOCYTES # (AUTO) 0.9 X10'3 (1.1-4.8); LYMPHOCYTES % (AUTO) 4.3 % (21-51); MEAN CORPUSCULAR HEMOGLOBIN 29.7 PG (27.0-31.0); MEAN CORPUSCULAR HGB CONC 33.8 g/dL (33.0-36.5); MEAN CORPUSCULAR VOLUME 87.8 FL (78-98); MEAN PLATELET VOLUME 8.5 FL (7.4-10.4); MONOCYTES # (AUTO) 1.6 X10'3 (0-0.9); MONOCYTES % (AUTO) 7.7 % (2-12); NEUTROPHILS # (AUTO) 18.4 X10'3 (1.8-7.7); PLATELET COUNT 358 X10'3 (140-440); RED BLOOD COUNT 2.94 X10'6 (4.70-6.10); WHITE BLOOD COUNT 20.9 X10'3 (4.5-11.0)
[2019-05-22 05:40] LABS: ANION GAP 10 (8-16); BLOOD UREA NITROGEN 26 MG/DL (7-18); CALCIUM 7.5 MG/DL (8.5-10.1); CHLORIDE 107 MMOL/L (99-107); CREATININE 1.37 MG/DL (0.60-1.10); GLUCOSE 111 MG/DL (70-104); MAGNESIUM 2.3 MG/DL (1.5-2.4); POTASSIUM 3.5 MMOL/L (3.5-5.1); SODIUM 139 MMOL/L (135-145); TOTAL CARBON DIOXIDE 22.2 MMOL/L (24-32); eGFR 51 ML/MIN
--- NOTE | 2019-05-22 06:42 | NUR ---
Problems reprioritized. Patient report given, questions answered & plan of care reviewed with Nevaeh BANDA.
[2019-05-22 07:00] VITALS: BP 130/55
--- NOTE | 2019-05-22 07:01 | NUR ---
Patient in room PCU 3017. I have received report from SOLO Sparks and had the opportunity to ask questions and assume patient care. Patient asleep and in no acute distress.
[2019-05-22 07:56] LABS: TOTAL CELLS COUNTED 100
[2019-05-22 07:59] LABS: PLATELET ESTIMATE NORMAL
[2019-05-22 08:00] LABS: ANISOCYTOSIS 1+; POLYCHROMASIA FEW; TOXIC GRANULATION 1+; TOXIC VACUOLATION FEW
[2019-05-22] MEDS: isosorbide mononitrate 30mg tab.SR.24H PO SCH (08:00)
[2019-05-22] MEDS: K and/or MAG REPLACEMENT MC SCH (08:00)
[2019-05-22] MEDS: amox tr/potassium clavulanate 875/125mg TAB PO SCH (09:00)
[2019-05-22] MEDS: atorvastatin 10mg tablet PO SCH (09:01)
[2019-05-22] MEDS: metoprolol succinate 25mg (24-HOUR) SR. Tablet PO SCH (09:01)
[2019-05-22] MEDS ORDERED: VANCOMYCIN LEVEL IV ONE (10:30)
--- NOTE | 2019-05-22 10:33 | NUR ---
Reassessment: Patient s/p EGD which showed duodenal ulcers per MD note. 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 Pt s/p left leg washout with wound VAC placement 05/20. Per [facility] notes pt also with full thick eschar surgical wound to left lower leg. Pt not appropriate for protein education at this time as pt documented as A/O x 2 per physical assessment. PO diet was advanced 05/21 to full liquid, pt documented with 75-100% PO intake first meal and 50% PO intake second meal, pending documentation of PO intake today. LBM 05/21. Will continue to follow closely and monitor need for nutrition intervention. Recommendations: 1) Advance diet to regular as medically indicated 2) Monitor need for ONS with diet advancement 3) Routine bowel care 4) Wt per rx Addendum: 05/22/19 at [address] Amended: Links added.
[2019-05-22 11:00] VITALS: BP 129/67
[2019-05-22 15:00] VITALS: BP 124/69
--- NOTE | 2019-05-22 15:08 | NUR ---
Called patient report to Lanre Willis to SOLO Pyle. Patient awaiting transport for transfer.
--- NOTE | 2019-05-22 15:45 | NUR ---
Patient is being transported via [facility]. Patients wound vac has been clamped and the end has been placed in a sterile glove and has been tied shut. Patient has been disconnected from the tele monitor, PIV has been removed and is intact, and patient has been cleaned up and an adult diaper has been placed per patients request. Patients has taken his belongings home with her. Patient has no questions at this time.
--- NOTE | 2019-05-22 16:13 | NUR ---
[place]rientee documentation: I have reviewed and agree with all interventions, assessments performed and documented by SOLO Dumont. [place] Medication Administration: For this medication-pass time frame, all medication were reviewed, dispensed, administered and documented per hospital policy by SOLO Dumont.
[2019-05-23] MEDS ORDERED: LACTC PO (20:26)
[2019-05-23] MEDS ORDERED: PANT40TA4 PO (20:26)
[2019-05-23] MEDS ORDERED: MULT-955 PO (20:26)
[2019-05-23] MEDS ORDERED: ATOR40TA7 PO (20:26)
[2019-05-23] MEDS ORDERED: AMOX-580 PO (20:26)
[2019-05-23] MEDS ORDERED: METO100T7 PO (20:26)
[2019-05-23] MEDS ORDERED: ISOS30TA6 PO (20:26)
== END 2019-05-22 15:44 | DRG 901 ==
LOC: ER 01:47 → PCU 3S 04:10 → CMPBEDREQ 05-21 20:06
PROVIDERS: ADMIT Hospitalist; ATTEND Family Medicine
PROC: 30233N1 Transfusion of Nonautologous Red Blood Cells into Peripheral Vein, Percutaneous Approach (ICD-10-PCS; 2019-05-19)
PROC: 0DB68ZX Excision of Stomach, Via Natural or Artificial Opening Endoscopic, Diagnostic (ICD-10-PCS; 2019-05-19)
PROC: 0JBM0ZZ Excision of Left Upper Leg Subcutaneous Tissue and Fascia, Open Approach (ICD-10-PCS; principal; 2019-05-20 19:22)
DX: T85.79XA Infection and inflammatory reaction due to other internal prosthetic devices, implants and grafts, initial encounter (principal); A41.9 Sepsis, unspecified organism; I21.4 Non-ST elevation (NSTEMI) myocardial infarction; N17.0 Acute kidney failure with tubular necrosis; E43 Unspecified severe protein-calorie malnutrition; K26.4 Chronic or unspecified duodenal ulcer with hemorrhage; R65.20 Severe sepsis without septic shock; N39.0 Urinary tract infection, site not specified; D62 Acute posthemorrhagic anemia; K92.1 Melena; Z68.1 Body mass index [BMI] 19.9 or less, adult; K52.1 Toxic gastroenteritis and colitis; I73.9 Peripheral vascular disease, unspecified; K44.9 Diaphragmatic hernia without obstruction or gangrene; F41.9 Anxiety disorder, unspecified; R94.31 Abnormal electrocardiogram [ECG] [EKG]; I95.9 Hypotension, unspecified; N18.3 Chronic kidney disease, stage 3 (moderate); T36.8X5A Adverse effect of other systemic antibiotics, initial encounter; K29.70 Gastritis, unspecified, without bleeding; E78.5 Hyperlipidemia, unspecified; I12.9 Hypertensive chronic kidney disease with stage 1 through stage 4 chronic kidney disease, or unspecified chronic kidney disease; J44.9 Chronic obstructive pulmonary disease, unspecified; L08.9 Local infection of the skin and subcutaneous tissue, unspecified; N40.0 Benign prostatic hyperplasia without lower urinary tract symptoms; Z82.49 Family history of ischemic heart disease and other diseases of the circulatory system; Z87.891 Personal history of nicotine dependence; Z88.1 Allergy status to other antibiotic agents; Y92.89 Other specified places as the place of occurrence of the external cause; Z79.899 Other long term (current) drug therapy; Z71.6 Tobacco abuse counseling
CPT/HCPCS: 36415; 36430; 43239; 71045; 76775; 80048; 80053; 81001; 82272; 83605; 83735; 83880; 84145; 84484; 85025; 85027; 85610; 85730; 86885; 86900; 86901; 86920; 87040; 87070; 87075; 87077; 87081; 87088; 87102; 87186; 87324; 87449; 88305; 93005; 93308; 96365; 96375; 97116; 97161; 97530; 99152; 99285; A4618; A4620; A6550; A7000; C9113; G0378; J0360; J0690; J0696; J2175; J2250; J2405; J2543; J2704; J3010; J3370; J3490; J7030; J7040; J7120; P9016

== ENCOUNTER 2019-05-23 17:56 | Inpatient (IN) | payer MEDICARE ==
[~2019-05-23] VITALS: Ht 172.7 cm; Wt 54.0 kg
[~2019-05-23 17:56] MED LIST changes: -BUPR150T8 PO; -CILO100T PO; -CLOP75TA35 PO; +CLOP75TA80 PO; +calcium chloride 100 MG/1 ML inj IV ONE; +epiNEPHrine 0.1mg/ml 10ml syringe ONE; +sodium bicarbonate (8.4%) 1 mEq/ml syringe ONE
[2019-05-23] MEDS ORDERED: normal saline 1000ML IV soln IV ONE (18:10)
[2019-05-23] MEDS ORDERED: pantoprazole IV 80 MG in normal saline 100ml IV soln 100 ML IV ONE (18:10)
[2019-05-23] MEDS ORDERED: proCHLORperazine 10 MG/2 ml inj IV ONE (18:10)
[2019-05-23] MEDS ORDERED: morphine 4 MG/ML inj SYRINge IV ONE (18:20)
--- NOTE | 2019-05-23 18:30 | NUR ---
1mg morphine given IV per MD. Patient concerned about previous sensitivity to medication and requested a lower dose.
[2019-05-23 18:42] LABS: BASOPHILS # (AUTO) 0.1 X10'3 (0-0.2); BASOPHILS % (AUTO) 0.3 % (0-1); EOSINOPHILS % (AUTO) 0.2 % (0-6); HEMOGLOBIN 8.4 g/dl (14.0-17.9); LYMPHOCYTES # (AUTO) 0.9 X10'3 (1.1-4.8); LYMPHOCYTES % (AUTO) 4.3 % (21-51); MEAN CORPUSCULAR HEMOGLOBIN 29.4 PG (27.0-31.0); MEAN CORPUSCULAR HGB CONC 33.7 g/dL (33.0-36.5); MEAN CORPUSCULAR VOLUME 87.3 FL (78-98); MEAN PLATELET VOLUME 8.4 FL (7.4-10.4); MONOCYTES # (AUTO) 1.6 X10'3 (0-0.9); MONOCYTES % (AUTO) 7.4 % (2-12); NEUTROPHILS # (AUTO) 19.5 X10'3 (1.8-7.7); NEUTROPHILS % (AUTO) 87.8 % (42-75); PLATELET COUNT 485 X10'3 (140-440); RED BLOOD COUNT 2.87 X10'6 (4.70-6.10); RED CELL DISTRIBUTION WIDTH 14.8 % (11.5-14.5); WHITE BLOOD COUNT 22.2 X10'3 (4.5-11.0)
[2019-05-23] MEDS ORDERED: pantoprazole IV 40 MG in normal saline 100ml IV soln 100 ML IV ONE (19:00)
[2019-05-23] MEDS ORDERED: pantoprazole 40 MG vial IV ONE (19:00)
[2019-05-23 19:07] LABS: BANDS% (MANUAL) 26 % (0-10); NEUTROPHILS % (MANUAL) 59 % (42-75); TOTAL CELLS COUNTED 100
[2019-05-23 19:08] LABS: LYMPHOCYTES % (MANUAL) 4 % (21-51); METAMYLEOCYTES% (MANUAL) 1 % (0-0); MONOCYTES % (MANUAL) 9 % (2-12); PLATELET ESTIMATE INCREASED; REACTIVE LYMPHOCYTES % 1 % (0-0)
[2019-05-23 19:09] LABS: TOXIC GRANULATION 1+
[2019-05-23 19:11] LABS: ALANINE AMINOTRANSFERASE 36 U/L (12-78); ALBUMIN 1.9 G/DL (3.4-5.0); ALBUMIN/GLOBULIN RATIO 0.4 (1.1-1.5); ALKALINE PHOSPHATASE 100 IU/L (46-116); ANION GAP 11 (8-16); ASPARTATE AMINO TRANSFERASE 27 U/L (10-37); BILIRUBIN,TOTAL 0.9 MG/DL (0.1-1.0); BLOOD UREA NITROGEN 29 MG/DL (7-18); BUN/CREATININE RATIO 18.6 (5.4-32.0); CALCIUM 7.5 MG/DL (8.5-10.1); CHLORIDE 102 MMOL/L (99-107); CREATININE 1.56 MG/DL (0.60-1.10); GLUCOSE 174 MG/DL (70-104); POTASSIUM 3.7 MMOL/L (3.5-5.1); SODIUM 134 MMOL/L (135-145); TOTAL CARBON DIOXIDE 21.2 MMOL/L (24-32); TOTAL PROTEIN 6.4 G/DL (6.4-8.2); eGFR 44 ML/MIN
[2019-05-23] MEDS ORDERED: metroNIDAZOLE-Flagyl 500mg/NS 100 ML IV STA (19:13)
[2019-05-23] MEDS ORDERED: CefTRIAXone 2gm/D5W 50ml 50 ML IV ONE (19:15)
[2019-05-23] MEDS: pantoprazole 40MG/NS 100ML BAG 100 ML IV SCH (20:11)
[2019-05-23] MEDS ORDERED: ATOR40TA7 PO (20:26)
[2019-05-23] MEDS ORDERED: AMOX-580 PO (20:26)
[2019-05-23] MEDS ORDERED: MULT-955 PO (20:26)
[2019-05-23] MEDS ORDERED: LACTC PO (20:26)
[2019-05-23] MEDS ORDERED: METO100T7 PO (20:26)
[2019-05-23] MEDS ORDERED: PANT40TA4 PO (20:26)
[2019-05-23] MEDS ORDERED: ISOS30TA6 PO (20:26)
[2019-05-23] MEDS ORDERED: magnesium 4gm in 100ml NS 100 ML IV PRN (21:55)
[2019-05-23] MEDS ORDERED: magnesium 2GM in 50ml NS 50 ML IV PRN (21:55)
[2019-05-23] MEDS ORDERED: acetaminophen 650mg rectal suppository RC PRN (21:55)
[2019-05-23] MEDS ORDERED: potassium CL 10mEq/100ml bag 100 ML IV PRN ×2 (21:55)
[2019-05-23] MEDS ORDERED: magnesium Cl slow-release 64mg tablet PO PRN (21:55)
[2019-05-23] MEDS ORDERED: ondansetron/PF 4mg/2ml inj IV PRN (21:55)
[2019-05-23] MEDS ORDERED: potassium Cl 20 mEq SR tablet PO PRN ×2 (21:55)
--- NOTE | 2019-05-23 22:44 | NUR ---
SPOKE WITH PATIENT'S DAUGHTER IN LAW KATHY, AFTER CONFIRMATION FOR PATIENT THAT IT IS OKAY TO DISCUSS CARE WITH HER. UPDATED TO PATIENT'S STATUS AT THIS TIME
[2019-05-23] MEDS: normal saline 1000ml 1,000 ML IV SCH (22:55)
[2019-05-24] VITALS (15 sets, daily range): BP systolic 91–148; BP diastolic 26–165
[2019-05-24] MEDS: pantoprazole 40MG/NS 100ML BAG 100 ML IV SCH ×5 (00:20→22:19)
[2019-05-24 01:29] LABS: HEMOGLOBIN 8.1 g/dl (14.0-17.9); MEAN CORPUSCULAR HEMOGLOBIN 29.2 PG (27.0-31.0); MEAN CORPUSCULAR HGB CONC 33.8 g/dL (33.0-36.5); MEAN CORPUSCULAR VOLUME 86.4 FL (78-98); MEAN PLATELET VOLUME 8.6 FL (7.4-10.4); PLATELET COUNT 432 X10'3 (140-440); RED BLOOD COUNT 2.78 X10'6 (4.70-6.10); RED CELL DISTRIBUTION WIDTH 14.6 % (11.5-14.5); WHITE BLOOD COUNT 22.2 X10'3 (4.5-11.0)
[2019-05-24 01:39] LABS: ALBUMIN 1.7 G/DL (3.4-5.0); ANION GAP 10 (8-16); BLOOD UREA NITROGEN 23 MG/DL (7-18); BUN/CREATININE RATIO 18.3 (5.4-32.0); CALCIUM 6.8 MG/DL (8.5-10.1); CHLORIDE 107 MMOL/L (99-107); CREATININE 1.26 MG/DL (0.60-1.10); GLUCOSE 122 MG/DL (70-104); MAGNESIUM 2.3 MG/DL (1.5-2.4); POTASSIUM 3.6 MMOL/L (3.5-5.1); SODIUM 137 MMOL/L (135-145); TOTAL CARBON DIOXIDE 20.1 MMOL/L (24-32); eGFR 56 ML/MIN
[2019-05-24 03:23] LABS: CLARITY,URINE CLEAR (Clear); COLOR,URINE AMBER (Yellow); GLUCOSE, URINE NEGATIVE (Neg); KETONES,URINE TRACE mg/dl (Neg); LEUKOCYTE ESTERASE ,URINE TRACE (Neg); NITRITES, URINE NEGATIVE (Neg); OCCULT BLOOD,URINE LARGE (Neg); PROTEIN,URINE 100 mg/dl (Neg); UROBILINOGEN,URINE 0.2 E.U/dL (0.2-1.0)
[2019-05-24 03:25] LABS: UA COLLECTION TYPE CLN CATCH MIDSTREAM
[2019-05-24 03:34] LABS: WBC,URINE 0-4 /HPF (0-4)
[2019-05-24 03:35] LABS: BACTERIA,URINE FEW /HPF (Neg); FINE GRANULAR CAST 0-3 /LPF (NEGATIVE); MUCUS STRANDS NONE SEEN /LPF (Neg); SQUAMOUS EPITHELIAL CELL,UR FEW /LPF (FEW)
--- NOTE | 2019-05-24 05:30 | NUR ---
Pt arrived in unit via gurney. Pt was ED for c/o of rectal bleed and sepsis. Pt was alert and oriented x4, bp 129/69, HR 86, RR 16, SPO2 98 in RA. Pt had a wound vac that belongs to [facility] and needs to be return.Wound RN needs to assess him and order a wound vac. I called pharmacy and obtained Protonix that is running at 20ml/hr.
--- NOTE | 2019-05-24 06:30 | NUR ---
Problems reprioritized. Patient report given, questions answered & plan of care reviewed with SOLO Vlale . Patient stable at shift change
--- NOTE | 2019-05-24 06:41 | NUR ---
Patient in room PCU 3009. I have received report from Zuleima BANDA and had the opportunity to ask questions and assume patient care.
[2019-05-24] MEDS: normal saline 1000ml 1,000 ML IV SCH ×2 (07:52→17:52)
[2019-05-24] MEDS: lactobacillus rhamnosus 10,000 MMU CELLS/CAPSULE PO SCH ×2 (08:00→22:20)
[2019-05-24] MEDS: K and/or MAG REPLACEMENT MC SCH ×2 (08:00→23:02)
[2019-05-24] MEDS ORDERED: pantoprazole 40 MG vial IV SCH (08:00)
[2019-05-24] MEDS: CefTRIAXone/D5W-Rocephin 1gm 50 ML IV SCH (09:09)
--- NOTE | 2019-05-24 09:35 | NUR ---
Paged hospitalist regarding IV protonix dosing PAGER ID: [phone] MESSAGE: Tori x [phone]. RE Chema king. Pt is on protonix drip, also has scheduled dose of protonix IVP. Advised by strawberry grower to hold IVP dose. Thanks!
--- NOTE | 2019-05-24 09:40 | NUR ---
Clarified protonix order with Dr. Arndt, states to hold IV push dose of protonix, continue protonix drip.
--- NOTE | 2019-05-24 09:45 | NUR ---
promotional table spacer PAGER ID: [phone] MESSAGE: [phone] DAYDAY. DO YOU WANT TO CONTINUE WOUND VAC ? IT IS GOING AT 125 MMMG CONTINOUS. LEANDRA CODY Addendum: 05/24/19 at 0957 by Leandra Eason RN Amended: Links added.
[2019-05-24] MEDS: metroNIDAZOLE-Flagyl 500mg/NS 100 ML IV SCH ×3 (10:06→17:05)
--- NOTE | 2019-05-24 13:34 | NUR ---
Relieved for break, report given to jorje Vila RN, to assume care for 30 mins
--- NOTE | 2019-05-24 14:06 | NUR ---
Reassumed care of patient from relief RN
[2019-05-24] MEDS ORDERED: LIDOcaine Viscous 15ml cup ONE (15:14)
[2019-05-24] MEDS ORDERED: MIDAZolam 5mg/5ml vial ONE (15:14)
[2019-05-24] MEDS ORDERED: fentaNYL/PF 50MCG/1 ML 2ML syringe ONE (15:14)
--- NOTE | 2019-05-24 15:20 | NUR ---
Patient to GI lab for EGD. Patient saline locked, tele monitor and wound vac remain on patient. Transferred to GI lab diane with GI RN to go to EGD
--- NOTE | 2019-05-24 16:40 | NUR ---
Patient returned from GI lab with GI RN. Patient sleepy but arouses easily to voice. Transfered to bed, tele monitor in place, wound vac in place. Protonix IV restarted. Patient sleeping, but wakes to voice and follows commands. Call light in reach. Family at bedside. Will continue to monitor patient. VS on return: 111/56, HR 87, SpO2 96% on RA, RR 14.
--- NOTE | 2019-05-24 18:15 | NUR ---
Post op VS performed, patient had a BP that was 91/26 while sleeping, laying on left side. Patient turned supine. Manual BP obtained was 111/62. Repeat BP was 126/45 automatic. Patient awakes to voice, is still drowsy. Will continue to monitor patient.
--- NOTE | 2019-05-24 18:37 | NUR ---
Problems reprioritized. Patient report given, questions answered & plan of care reviewed with Maggi BANDA.
--- NOTE | 2019-05-24 18:41 | NUR ---
Patient in room PCU 3009. I have received report from SASCHA BANDA and had the opportunity to ask questions and assume patient care.
[2019-05-24] MEDS ORDERED: ipratropium/albuterol 3ml nebule NEB PRN (20:00)
[2019-05-24] MEDS ORDERED: atorvastatin 20mg tablet PO SCH (21:00)
[2019-05-24] MEDS ORDERED: terazosin 5mg capsule PO SCH (21:00)
[2019-05-24] MEDS: zolpidem 5mg tablet PO PRN (23:02)
[2019-05-25] MEDS: metroNIDAZOLE-Flagyl 500mg/NS 100 ML IV SCH ×3 (00:03→16:06)
[2019-05-25] MEDS: zolpidem 5mg tablet PO PRN (00:45)
[2019-05-25 02:00] VITALS: BP 136/58
[2019-05-25] MEDS: morphine 2 MG/ML inj. syringe IV PRN ×3 (03:44→16:16)
[2019-05-25] MEDS: pantoprazole 40MG/NS 100ML BAG 100 ML IV SCH ×3 (04:07→11:37)
[2019-05-25 05:19] LABS: BASOPHILS % (AUTO) 0.1 % (0-1); EOSINOPHILS % (AUTO) 0 % (0-6); HEMATOCRIT 25.5 % (42.0-52.0); HEMOGLOBIN 8.6 g/dl (14.0-17.9); LYMPHOCYTES # (AUTO) 0.8 X10'3 (1.1-4.8); LYMPHOCYTES % (AUTO) 3.3 % (21-51); MEAN CORPUSCULAR HEMOGLOBIN 29.5 PG (27.0-31.0); MEAN CORPUSCULAR HGB CONC 33.7 g/dL (33.0-36.5); MEAN CORPUSCULAR VOLUME 87.6 FL (78-98); MEAN PLATELET VOLUME 8.9 FL (7.4-10.4); MONOCYTES # (AUTO) 2.1 X10'3 (0-0.9); MONOCYTES % (AUTO) 8.6 % (2-12); NEUTROPHILS # (AUTO) 21.9 X10'3 (1.8-7.7); PLATELET COUNT 431 X10'3 (140-440); RED BLOOD COUNT 2.91 X10'6 (4.70-6.10); RED CELL DISTRIBUTION WIDTH 15.2 % (11.5-14.5); WHITE BLOOD COUNT 24.8 X10'3 (4.5-11.0)
[2019-05-25 05:31] LABS: ALBUMIN 1.7 G/DL (3.4-5.0); ANION GAP 14 (8-16); BLOOD UREA NITROGEN 25 MG/DL (7-18); BUN/CREATININE RATIO 19.8 (5.4-32.0); CALCIUM 6.7 MG/DL (8.5-10.1); CHLORIDE 107 MMOL/L (99-107); CREATININE 1.26 MG/DL (0.60-1.10); GLUCOSE 133 MG/DL (70-104); MAGNESIUM 2.4 MG/DL (1.5-2.4); POTASSIUM 3.5 MMOL/L (3.5-5.1); SODIUM 140 MMOL/L (135-145); TOTAL CARBON DIOXIDE 18.7 MMOL/L (24-32); eGFR 56 ML/MIN
[2019-05-25] MEDS: normal saline 1000ml 1,000 ML IV SCH ×3 (05:47→22:51)
[2019-05-25 06:00] VITALS: BP 100/56
--- NOTE | 2019-05-25 06:12 | NUR ---
Problems reprioritized. Patient report given, questions answered & plan of care reviewed with Tori BANDA.
--- NOTE | 2019-05-25 06:19 | NUR ---
Patient in room PCU 3009. I have received report from Maggi BANDA and had the opportunity to ask questions and assume patient care. Patient laying in bed, eyes closed. IV fluids and IV protonix infusing.
[2019-05-25 06:35] LABS: PLATELET ESTIMATE NORMAL; TOTAL CELLS COUNTED 100
[2019-05-25 06:42] LABS: POLYCHROMASIA FEW; SCHISTOCYTES FEW
[2019-05-25 06:44] LABS: TOXIC GRANULATION 3+
[2019-05-25 06:50] LABS: BURR CELLS FEW
[2019-05-25] MEDS: CefTRIAXone/D5W-Rocephin 1gm 50 ML IV SCH (07:59)
[2019-05-25] MEDS: K and/or MAG REPLACEMENT MC SCH ×2 (08:00→20:00)
[2019-05-25] MEDS: lactobacillus rhamnosus 10,000 MMU CELLS/CAPSULE PO SCH (08:00)
[2019-05-25 11:00] VITALS: BP 107/51
[2019-05-25] MEDS ORDERED: HYDROcodone/acetaminophen 5mg/325mg tablet PO PRN (13:10)
[2019-05-25 15:00] VITALS: BP 96/54
[2019-05-25 18:00] VITALS: BP 108/62
--- NOTE | 2019-05-25 18:08 | NUR ---
Patient reporting increased anxiety and nausea. Will give teresa William hospitalist, Dr. Arndt for anxiety medications. PAGER ID: [phone] MESSAGE: Tori x [phone]. RE Chema Arora. Patient having a lot of anxiety and nausea. Will give Zofran, can I have med for anxiety? Thanks
[2019-05-25] MEDS ORDERED: LORazepam 2 mg/ml vial IV PRN (18:25)
--- NOTE | 2019-05-25 18:33 | NUR ---
Problems reprioritized. Patient report given, questions answered & plan of care reviewed with Maggi BANDA.
--- NOTE | 2019-05-25 18:38 | NUR ---
Patient in room PCU 3009. I have received report from SASCHA BANDA and had the opportunity to ask questions and assume patient care.
[2019-05-25] MEDS ORDERED: pantoprazole 40 MG vial IV SCH (20:00)
--- NOTE | 2019-05-25 20:23 | NUR ---
Page Sent promotional table spacer PAGER ID: [phone] MESSAGE: Javid Arora [phone] here for sepis/abd pain having very frequent episodes of diarrhea. Has nonactive duodenal ulcer. last BM was liquid, red tinged. unable to keep dry. backside is very red. rectal tube or something for diarrhea? Maggi [phone]
--- NOTE | 2019-05-25 20:36 | NUR ---
Called Dr. Chiang about patient's active red-tinged diarrhea and she said to start him on a protonix drip and that pharmacy will dose. also to get a stat h&h
[2019-05-25] MEDS ORDERED: pantoprazole 40MG/NS 100ML BAG 100 ML IV SCH (21:00)
--- NOTE | 2019-05-25 21:15 | NUR ---
Dr. Chiang was called about patient having frequent bouts of diarrhea with dark red blood. The BM's were increasing with frequency and patient was looking pale. Dr. Chiang ordered a H&H STAT as well as starting him back on a protonix drip. A rapid was called due to the patient's rapid decline(hypotensive, pale, agitated, respiratory distress). Original blood pressure was in the 80s. Manual was attempted, couldn't get an accurate reading. The rapid response team arrived, Dr. Chiang ordered a bolus of 500ml NS. The patient was transferred to ICU and Salvador BANDA took report.
--- NOTE | 2019-05-25 21:26 | NUR ---
Dr. Chiang ordered a 500 ml bolus, a rapid response was called
[2019-05-25 21:36] LABS: HEMATOCRIT 25.6 % (42.0-52.0); HEMOGLOBIN 7.9 g/dl (14.0-17.9); MEAN CORPUSCULAR HEMOGLOBIN 28.8 PG (27.0-31.0); MEAN CORPUSCULAR VOLUME 92.7 FL (78-98); MEAN PLATELET VOLUME 8.6 FL (7.4-10.4); PLATELET COUNT 512 X10'3 (140-440); RED BLOOD COUNT 2.76 X10'6 (4.70-6.10); RED CELL DISTRIBUTION WIDTH 16.2 % (11.5-14.5)
[2019-05-25 21:43] LABS: WHITE BLOOD COUNT 42.5 X10'3 (4.5-11.0)
--- NOTE | 2019-05-25 21:50 | NUR ---
RECEIVED RAPID RESPOND PATIENT FROM PCU PER SIMON , AWAKE BUT ALTERED , OPENS EYES , FOLLOWS COMMAND APPROPRIATELY , ON NON REBREATHER ON 100% O2SATS BP 120/62 ( 67) , PLACED NEW PIV , GIVEN ALBUMIN , [employer] REPAIRER REHAN AT BEDSIDE , FAMILY AT BEDSIDE .
[2019-05-25] MEDS ORDERED: albumin (Human) 5% 250ml 500 ML IV ONE (21:53)
--- NOTE | 2019-05-25 21:56 | NUR ---
Problems reprioritized. Patient report given, questions answered & plan of care reviewed with Salvador BANDA.
[2019-05-25] MEDS ORDERED: albumin (Human) 5% 250ml 250 ML IV ONE (22:00)
[2019-05-25] MEDS ORDERED: normal saline 500ml IV soln 500 ML IV ONE (22:15)
[2019-05-25 23:21] VITALS: BP 123/70
[2019-05-25 23:26] LABS: ALANINE AMINOTRANSFERASE 1449 U/L (12-78); ALBUMIN 1.9 G/DL (3.4-5.0); ALBUMIN/GLOBULIN RATIO 0.6 (1.1-1.5); ALKALINE PHOSPHATASE 128 IU/L (46-116); ANION GAP 23 (8-16); BILIRUBIN,TOTAL 2.2 MG/DL (0.1-1.0); BLOOD UREA NITROGEN 31 MG/DL (7-18); BUN/CREATININE RATIO 14.4 (5.4-32.0); CALCIUM 6.6 MG/DL (8.5-10.1); CHLORIDE 110 MMOL/L (99-107); CREATININE 2.16 MG/DL (0.60-1.10); GLUCOSE 61 MG/DL (70-104); POTASSIUM 5.5 MMOL/L (3.5-5.1); SODIUM 142 MMOL/L (135-145); TOTAL PROTEIN 5.3 G/DL (6.4-8.2); TROPONIN I 0.31 NG/ML (0.0-0.05); eGFR 30 ML/MIN
[2019-05-25 23:28] LABS: TOTAL CARBON DIOXIDE 8.7 MMOL/L (24-32)
--- NOTE | 2019-05-25 23:59 | NUR ---
2245- PATIENT DOING BETTER IN BP HIS 109/56 (64) O2 SATS 99 AT NASAL CANNULA AT 3L , 2300 - FAMILY CAME OUT FROM ROOM AND CLAIMED HIS BREATHING IS SHALLOW AND SLOW , WENT IN TO ROOM AND FOUND PATIENT HEART RATE AT 62 / O2 SATS AT 94 RESPIRATION OF 7 , NO PULSE , YUDITH RUEDA CALLED . DR. HAYNES CALLED OFF AND PRONOUNCED THE PATIENT AT 0946 . ( SEE CODE BLUE RECORD ) AND EXPIRATION MEMORANDUM , ALL BELONGINGS SEND WITH FAMILY.
[2019-05-26] LABS: ASPARTATE AMINO TRANSFERASE 2697 U/L (10-37)
== END 2019-05-25 23:18 | disposition expired | DRG 314 ==
LOC: ER 17:57 → ED HOLD 21:52 → PCU 3S 05-24 05:00 → ICU 2S 05-25 22:01
PROVIDERS: ADMIT Internal Medicine; ATTEND Family Medicine
PROC: 0DJ08ZZ Inspection of Upper Intestinal Tract, Via Natural or Artificial Opening Endoscopic (ICD-10-PCS; 2019-05-24)
PROC: 30233N1 Transfusion of Nonautologous Red Blood Cells into Peripheral Vein, Percutaneous Approach (ICD-10-PCS; principal; 2019-05-25)
PROC: 5A12012 Performance of Cardiac Output, Single, Manual (ICD-10-PCS; 2019-05-25)
DX: T82.7XXA Infection and inflammatory reaction due to other cardiac and vascular devices, implants and grafts, initial encounter (principal); A41.9 Sepsis, unspecified organism; K26.4 Chronic or unspecified duodenal ulcer with hemorrhage; N39.0 Urinary tract infection, site not specified; K52.1 Toxic gastroenteritis and colitis; N17.9 Acute kidney failure, unspecified; D50.0 Iron deficiency anemia secondary to blood loss (chronic); E78.5 Hyperlipidemia, unspecified; N18.3 Chronic kidney disease, stage 3 (moderate); J44.9 Chronic obstructive pulmonary disease, unspecified; Y82.8 Other medical devices associated with adverse incidents; T36.95XA Adverse effect of unspecified systemic antibiotic, initial encounter; I73.9 Peripheral vascular disease, unspecified; N40.0 Benign prostatic hyperplasia without lower urinary tract symptoms; R94.31 Abnormal electrocardiogram [ECG] [EKG]; I95.9 Hypotension, unspecified; Z87.891 Personal history of nicotine dependence; Y92.89 Other specified places as the place of occurrence of the external cause; I46.9 Cardiac arrest, cause unspecified
CPT/HCPCS: 36415; 43235; 71045; 80048; 80053; 81001; 82948; 83605; 83735; 84145; 84484; 85025; 85027; 85610; 86885; 86900; 86901; 86920; 87040; 87081; 87088; 92950; 93005; 94760; 96374; 96375; 99152; 99285; A4620; C9113; G0378; J0171; J0696; J0780; J2060; J2250; J2270; J2405; J3010; J3490; J7030; J7040; P9016; P9045